=== PATIENT | female | born 2000 | race Caucasian/White ===

== ENCOUNTER 2025-07-28 11:07 | Emergency (ER) | payer OTHER, BC ==
[2025-07-28] MEDS ORDERED: diphenhydrAMINE 50 MG/ML VIAL ONE (11:37)
[2025-07-28] MEDS ORDERED: Famotidine/PF 20 mg/2ml Vial ONE (11:37)
== END 2025-07-28 12:41 | disposition home or self-care (01) ==
LOC: CSHERS 11:07
DX: T78.40XA Allergy, unspecified, initial encounter (principal)
CPT/HCPCS: 96374; 96375; J1200; J1308; J2919